=== PATIENT | male | born 1990 | race Two or more races ===

== ENCOUNTER 2018-07-04 15:37 | Emergency (ER) | payer SELFPAY ==
[~2018-07-04] VITALS: Ht 188 cm; Wt 127.0 kg
--- NOTE | 2018-07-04 15:38 | NUR ---
BIB SELF FOR WOUND EVAL TO INTERGLUTEAL AREA. TO ER BED 4, AWAITING MD KELLEY
--- NOTE | 2018-07-04 16:30 | NUR ---
MARLYN LIAO AT BEDSIDE
--- NOTE | 2018-07-04 16:58 | NUR ---
Patient discharged to home in stable condition. Written and verbal after care instructions given. Patient verbalizes understanding of instruction.
[2018-07-04 16:59] VITALS: BP 138/99
== END 2018-07-04 16:59 | disposition home or self-care (01) ==
LOC: ER 15:38
DX: L05.92 Pilonidal sinus without abscess (principal); B37.9 Candidiasis, unspecified
CPT/HCPCS: A6402; A6403